=== PATIENT | female | born 1965 | race Caucasian/White ===

== ENCOUNTER 2018-03-14 13:28 | Emergency (ER) | payer OTHER ==
--- NOTE | 2018-03-14 13:53 | ER Document Report ---
ED Medical Screen (RME) - General Chief Complaint: Chest Pain Stated Complaint: CHEST PAIN Time Seen by Provider: 03/14/18 13:50 Mode of Arrival: Ambulatory Information source: Patient - HPI Patient complains to provider of: cp/bruising Onset: This morning - pt is S/p CABG earlier this year with onset of CP this am. Also had some bruising of L arm and is on coumadin - Related Data Allergies/Adverse Reactions: Sulfa (Sulfonamide Antibiotics) Allergy (Verified 03/14/18 13:29) Physical Exam - Vital signs Vitals: Temp Pulse Resp BP Pulse Ox 98.2 F 96 16 130/84 H 96 03/14/18 13:36 03/14/18 13:36 03/14/18 13:36 03/14/18 13:36 03/14/18 13:36 Course - Vital Signs Vital signs: Temp Pulse Resp BP Pulse Ox 98.2 F 96 16 130/84 H 96 03/14/18 13:36 03/14/18 13:36 03/14/18 13:36 03/14/18 13:36 03/14/18 13:36
[2018-03-14 14:24] LABS: ABSOLUTE EOSINOPHILS # (AUTO) 0.3 10^3/uL (0.0-0.6); ABSOLUTE LYMPHOCYTES (AUTO) 2.1 10^3/uL (0.5-4.7); ABSOLUTE MONOCYTES (AUTO) 0.4 10^3/uL (0.1-1.4); ABSOLUTE NEUT (AUTO) 3.3 10^3/uL (1.7-8.2); BASOPHILS % (AUTO) 0.6 % (0-2); EOSINOPHILS % (AUTO) 5.4 % (0-6); HEMATOCRIT 39.4 % (36.0-47.0); HEMOGLOBIN 13.4 g/dL (12.0-15.5); LYMPHOCYTES % (AUTO) 34.1 % (13-45); MEAN CORPUSCULAR HEMOGLOBIN 28.3 pg (27.0-33.4); MEAN CORPUSCULAR HGB CONC 33.9 g/dL (32.0-36.0); MEAN CORPUSCULAR VOLUME 84 fl (80-97); MONOCYTES % (AUTO) 6.5 % (3-13); PLATELET COUNT 242 10^3/uL (150-450); RED BLOOD COUNT 4.72 10^6/uL (3.72-5.28); RED CELL DISTRIBUTION WIDTH 16.6 % (11.5-14.0); SEGMENTED NEUTROPHILS % (AUTO) 53.4 % (42-78); TOTAL CELLS COUNTED % (AUTO) 100 %; WHITE BLOOD COUNT 6.3 10^3/uL (4.0-10.5)
--- NOTE | 2018-03-14 14:27 | RADIOLOGY REPORT (SQ) ---
EXAM DESCRIPTION: CHEST 2 VIEWS COMPLETED DATE/TIME: 03/14/2018 2:15 pm REASON FOR STUDY: CP COMPARISON: None. EXAM PARAMETERS: NUMBER OF VIEWS: two views TECHNIQUE: Digital Frontal and Lateral radiographic views of the chest acquired. RADIATION DOSE: NA LIMITATIONS: none FINDINGS: LUNGS AND PLEURA: No opacities, masses or pneumothorax. No pleural effusion. MEDIASTINUM AND HILAR STRUCTURES: No masses or contour abnormalities. HEART AND VASCULAR STRUCTURES: Heart normal size. No evidence for failure. BONES: No acute findings. HARDWARE: Sternotomy wires. Heart valves. OTHER: No other significant finding. IMPRESSION: NO ACUTE RADIOGRAPHIC FINDING IN THE CHEST. TECHNICAL DOCUMENTATION: JOB ID: [id number] [employer]- All Rights Reserved Reading location - IP/workstation name: [email or web address]
[2018-03-14 14:36] LABS: INTERNATIONAL RATION (INR) 1.94; PROTHROMBIN TIME 23.1 SEC (11.4-15.4)
[2018-03-14 14:46] LABS: ALANINE AMINOTRANSFERASE 32 U/L (9-52); ALBUMIN 4.4 g/dL (3.5-5.0); ALKALINE PHOSPHATASE 79 U/L (38-126); ANION GAP 9 (5-19); ASPARTATE AMINO TRANSFERASE 27 U/L (14-36); BILIRUBIN,DIRECT 0.3 mg/dL (0.0-0.4); BILIRUBIN,TOTAL 0.6 mg/dL (0.2-1.3); BLOOD UREA NITROGEN 16 mg/dL (7-20); CALCIUM 9.4 mg/dL (8.4-10.2); CARBON DIOXIDE 27 mmol/L (22-30); CHLORIDE 105 mmol/L (98-107); CREATINE KINASE 51 U/L (30-135); GLUCOSE 117 mg/dL (75-110); POTASSIUM 4.2 mmol/L (3.6-5.0); SODIUM 140.8 mmol/L (137-145); TOTAL PROTEIN 7.6 g/dL (6.3-8.2)
[2018-03-14 14:58] LABS: CREATINE KINASE MB 0.51 ng/mL (<4.55)
[2018-03-14 14:59] LABS: TROPONIN I < 0.012 ng/mL
--- NOTE | 2018-03-14 16:05 | ER Document Report ---
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 Had massage yesterday (including arms), when she got in the bath this am noticed a knotty bruise that she is really worried about on left upper arm. Having to take shallow breaths to decrease the chest pain. Does not feel short of breath. No swelling. No fever or chills. Takes Coumadin 3mg daily, except saturday and akes 1 mg. Missed saturday dose of 1mg. Dr. Carpio manages Coumadin, INR is supposed be between (2.5-3.5) usually gets drawn in am's, takes the coumadin between 4:30-5 pm for better absorption. Cardiology (not surgeon) will be seen mar 19. - Related Data Allergies/Adverse Reactions: cyclobenzaprine [From Flexeril] Allergy (Verified 03/14/18 13:54) gabapentin [From Neurontin] Allergy (Verified 03/14/18 13:54) ketorolac [From Toradol] Allergy (Verified 03/14/18 13:54) Sulfa (Sulfonamide Antibiotics) Allergy (Verified 03/14/18 13:29) tramadol Allergy (Verified 03/14/18 13:54) NSAIDS (Non-Steroidal Anti-Inflamma Adverse Reaction (Mild, Verified 03/14/18 13 :54) Past Medical History - General Information source: Patient - Social History Smoking Status: Current Every Day Smoker Frequency of alcohol use: Rare Drug Abuse: None Lives with: Spouse/Significant other Family History: Reviewed & Not Pertinent Patient has suicidal ideation: No Patient has homicidal ideation: No Pulmonary Medical History: Reports: Hx Asthma Renal/ Medical History: Denies: Hx Peritoneal Dialysis Past Surgical History: Reports: Hx Cardiac Surgery - x2 valve replacement Review of Systems - Review of Systems Constitutional: No symptoms reported EENT: No symptoms reported Cardiovascular: See HPI Respiratory: See HPI Gastrointestinal: No symptoms reported Genitourinary: No symptoms reported Female Genitourinary: No symptoms reported Musculoskeletal: See HPI Skin: No symptoms reported Hematologic/Lymphatic: No symptoms reported Neurological/Psychological: No symptoms reported Physical Exam - Vital signs Vitals: Temp Pulse Resp BP Pulse Ox 98.2 F 96 16 130/84 H 96 03/14/18 13:36 03/14/18 13:36 03/14/18 13:36 03/14/18 13:36 03/14/18 13:36 Interpretation: Normal - General General appearance: Appears well, Alert In distress: None - HEENT Head: Normocephalic, Atraumatic Eyes: Normal Conjunctiva: Normal Pupils: PERRL Tympanic membrane: Normal Mucous membranes: Normal Neck: Supple. No: Lymphadenopathy - Respiratory Respiratory status: No respiratory distress Chest status: Nontender Breath sounds: Decreased air movement - prolonged expiration Chest palpation: Normal - Cardiovascular Rhythm: Regular Heart sounds: Normal auscultation Murmur: No - Abdominal Inspection: Normal Distension: No distension Bowel sounds: Normal Tenderness: Nontender Organomegaly: No organomegaly - Back Back: Normal, Nontender. No: CVA tenderness - Extremities General upper extremity: Tender - hematoma left upper arm over bicep, Normal color, Normal ROM, Normal temperature General lower extremity: Normal inspection, Nontender, Normal color, Normal ROM , Normal temperature, Normal weight bearing. No: Angeli's sign - Neurological Neuro grossly intact: Yes Cognition: Normal Orientation: AAOx4 [place] Coma Scale Eye Opening: Spontaneous [place] Coma Scale Verbal: Oriented M[place] Coma Scale Motor: Obeys Commands [place] Coma Scale Total: 15 Speech: Normal Motor strength normal: LUE, RUE, LLE, RLE Sensory: Normal - Psychological Associated symptoms: Normal affect, Normal mood - Skin Skin Temperature: Warm Skin Moisture: Dry Skin Color: Normal Course - Re-evaluation Re-evalutation: 03/14/18 16:31 has flovent with her, not using it. no bronchodilators. EKG NSR, no acute change, qt 384, qtc 483 03/14/18 17:39 The breathing treatment did not change the chest pain but that she does feel like she can cough more and expectorate more sputum. She has increased steps inspiration and expiration after the first treatment. 03/14/18 18:[address] wisdom. The cardiac enzymes are negative the second troponin is also negative. He is going to see the patient. The tech is been called for the venous Doppler ultrasound of the left upper arm. 03/14/18 18:46 03/14/18 19:34 Dr. Wisdom saw the patient and feels like the patient can be discharged home there prelim venous Doppler ultrasound is negative I will be calling Dr. Karolina Cash for the final report shortly 03/14/18 19:45 pt wanted to go home, will call with final results 03/14/18 20:30 dr cash called me and the VDUS is negative. I called the pt and told her. - Vital Signs Vital signs: Temp Pulse Resp BP Pulse Ox 97.4 F 96 19 144/90 H 96 03/14/18 20:00 03/14/18 13:36 03/14/18 19:52 03/14/18 19:52 03/14/18 19:52 - Laboratory Result Diagrams: 03/14/18 14:00 03/14/18 14:00 Laboratory results interpreted by me: 03/14/18 03/14/18 03/14/18 14:00 14:00 14:00 RDW 16.6 H PT 23.1 H Glucose 117 H Discharge - Discharge Clinical Impression: Bronchitis, left upper arm hematoma Chest pain Qualifiers: Chest pain type: unspecified Qualified Code(s): R07.9 - Chest pain, unspecified Condition: Good Disposition: HOME, SELF-CARE Instructions: Bronchitis ([facility]), Chest Pain of Unclear Cause ([facility]), Inhaled Bronchodilators ([facility]), Stop Smoking ([facility]) Additional Instructions: Use the albuterol metered-dose inhaler 2 puffs every 3 hours for the cough and mucus production Return to the emergency room any worsening symptoms Copy of all lab work EKG chest x-ray given to you for your doctor at home in [place] Warm compress to left upper arm. stop smoking Prescriptions: Albuterol Sulfate [Proair HFA Inhalation Aerosol 8.5 gm MDI] 2 puff IH Q3HP PRN #1 [email or web address] PRN Reason:
[2018-03-14] MEDS ORDERED: IPRATROPIUM/ALBUTEROL 0.5-2.5 MG/3 ML AMPUL NEB ONE (16:33)
[2018-03-14] MEDS ORDERED: OXYCODONE-ACETAMINOPHEN 5-325 MG TABLET PO ONE (16:37)
[2018-03-14] MEDS ORDERED: ALBUTEROL SULFATE 0.083% NEB 2.5 MG/3 ML AMPUL NEB ONE (17:39)
[2018-03-14] MEDS ORDERED: WARFARIN SODIUM 3 MG TABLET PO ONE (18:50)
[2018-03-14 19:56] VITALS: BP 144/90
--- NOTE | 2018-03-14 22:38 | EKG REPORT ---
SEVERITY:- NORMAL ECG - SINUS RHYTHM : Confirmed by: Catarina Otero MD 14-Mar-2018 22:37:29
--- NOTE | 2018-03-15 08:31 | XCELERA REPORT ---
[address] [address] Upper Extremity Venous Evaluation Name: SOLEDAD BYRD Age: 52 yrs Gender: Female : 1965 Patient Status: Emergency Patient Location: ER Study Date: 03/14/2018 06:38 PM Procedure: Unilateral duplex scan of the left upper extremity veins was performed, including responses to compression and other maneuvers. Reason For Study: left upper arm hematoma Ordering Physician: BRIANDA CAPELLAN Performed By: Fatou Rolle Left Sided Venous Evaluation Normal vessel filling wall to wall, compression and augmentation as well as Colour flow down to the forearm veins. Interpretation Summary Normal compression, patency, spontaneous and phasic flow of the left upper extremity veins. : BRIANDA CAPELLAN > Moises Cash
== END 2018-03-14 20:00 | disposition home or self-care (01) ==
LOC: ER 13:28
DX: R07.9 Chest pain, unspecified (principal); J45.909 Unspecified asthma, uncomplicated; R05 Cough; S40.022A Contusion of left upper arm, initial encounter; X58.XXXA Exposure to other specified factors, initial encounter; F17.200 Nicotine dependence, unspecified, uncomplicated; Z95.2 Presence of prosthetic heart valve; Z79.01 Long term (current) use of anticoagulants; Z88.8 Allergy status to other drugs, medicaments and biological substances; Z88.2 Allergy status to sulfonamides; Z88.5 Allergy status to narcotic agent; Z88.6 Allergy status to analgesic agent
CPT/HCPCS: 93005; 94640 ×2; 99285; 36415; 82553; 82550; 85025; 85610; 80053; 84484; 93971 ×2; 71046; 93010; J3490; J7620